=== PATIENT | male | born 1990 ===

== ENCOUNTER 2019-04-10 09:20 | Emergency (ER) | payer OTHER ==
[2019-04-10] MEDS ORDERED: NS 0.9% 1000 ML** 1,000 ML IV ONE (09:31)
--- NOTE | 2019-04-10 09:44 | ED ---
Abdominal Pain/Male - HPI Summary HPI Summary: The pt is a 29 yr old male [place] [facility] [place] with diarrhea beginning 2 months [employer]. He states that he was seen at the [facility] last week and gave stool specimens but has not heard back from them. He can ingest liquids without issue but eating solids cause him to have diarrhea and abd pain. 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 He has not traveled outside of the [place] recently. He notes that the pain is in the left mid abdomen and rates his current pain severity a 3/10. No alleviating factors noted. He also denies any vomiting. - History of Current Complaint Chief Complaint: EDAbdPain Stated Complaint: ABD PAIN Time Seen by Provider: 04/10/19 09:30 Hx Obtained From: Patient Onset/Duration: Sudden Onset, Lasting Weeks - 2 months, Still Present Timing: Intermittent, Lasting Weeks Severity Initially: Mild Severity Currently: Mild Pain Intensity: 3 Pain Scale Used: 0-10 Numeric - 3 Location: Umbilical - left Character: Cramping Aggravating Factor(s): Food Alleviating Factor(s): Nothing Associated Signs And Symptoms: Positive: Diarrhea, Other - pos - abd pain. Negative: Vomiting - Allergies/Home Medications Allergies/Adverse Reactions: Allergies Allergy/AdvReac Type Severity Reaction Status Date / Time Penicillins Allergy Unknown Verified 04/10/19 09:29 Reaction Details PMH/Surg Hx/FS Hx/Imm Hx Infectious Disease History: No Infectious Disease History: Denies: Traveled Outside the [place] in Last 30 Days Review of Systems Positive: Abdominal Pain, Diarrhea. Negative: Vomiting All Other Systems Reviewed And Are Negative: Yes Physical Exam Triage Information Reviewed: Yes Vital Signs On Initial Exam: Initial Vitals Temp Pulse Resp BP Pulse Ox 98.0 F 92 18 123/78 98 04/10/19 09:23 04/10/19 09:23 04/10/19 09:23 04/10/19 09:23 04/10/19 09:23 Vital Signs Reviewed: Yes Procedures - Sedation Patient Received Moderate/Deep Sedation with Procedure: No Diagnostics - Vital Signs Vital Signs Temp Pulse Resp BP Pulse Ox 04/10/19 09:23 98.0 F 92 18 123/78 98 - Laboratory Result Diagrams: 04/10/19 09:40 04/10/19 09:40 Lab Statement: Any lab studies that have been ordered have been reviewed, and results considered in the medical decision making process. 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 He states that he was seen at the [facility] last week and gave stool specimens but has not heard back from them. He can ingest liquids without issue but eating solids cause him to have diarrhea and abd pain. Test results normal except for Plt Count 136 and Absolute Neuts 1.4. In the ED course pt was given 1000 mls fluids. Final Dx are abd pain and diarrhea. Pt will be discharged home with PCP follow up. Pt is agreeable with this plan. - Diagnoses Provider Diagnoses: Abdominal pain, Diarrhea Discharge ED - Sign-Out/Discharge Documenting (check all that apply): Patient Departure - discharge - Discharge Plan Condition: Stable Disposition: HOME Patient Education Materials: Acute Diarrhea (ED), Acute Abdominal Pain (ED) Referrals: [facility] [Outside] - 3 Days Additional Instructions: Please follow up with your primary care physician within 3 days. Please return to the ED for any new or worsening symptoms. - Billing Disposition and Condition Condition: STABLE Disposition: Home - Attestation Statements Document Initiated by Amaliaibe: Yes Documenting Scribe: Kahlil Aragon Provider For Whom Luca is Documenting (Include Credential): Luis Kebede DO Scribe Attestation: Kahlil Jackson, scribed for Luis Kebede DO on 04/10/19 at 1331. Scribe Documentation Reviewed: Yes Provider Attestation: The documentation as recorded by the Kahlil perez accurately reflects the service I personally performed and the decisions made by me, Luis Kebede DO Status of Scribchiqui Document: Viewed
[2019-04-10 09:48] LABS: ABS Eosinophils 0.3 10^3/ul (0-0.6); ABS Lymphocytes 1.6 10^3/ul (1.0-4.8); ABS Monocytes 0.3 10^3/ul (0-0.8); ABS Neutrophils 1.4 10^3/ul (1.5-7.7); Eosinophil % 8.1 %; Hematocrit 47 % (42-52); Hemoglobin 15.2 g/dL (14.0-18.0); Lymphocyte % 44.6 %; Mean Corpuscular HGB Conc 33 g/dL (31-36); Mean Corpuscular Hemoglobin 29 pg (27-31); Mean Corpuscular Volume 88 fL (80-94); Mean Platelet Volume 9.2 fL (7.4-10.4); Nucleated Red Blood Cells % 0.2; Platelet Count 136 10^3/uL (150-450); Red Cell Distribution Width 14 % (10-15); White Blood Count 3.6 10^3/uL (3.5-10.8)
[2019-04-10 10:21] LABS: Albumin 4.9 g/dL (3.2-5.2); Albumin/Globulin Ratio 2.1 (1-3); BUN/Creatinine Ratio 14.4 (8-20); Calcium 10.1 mg/dL (8.6-10.3); EGFR African American 110.7 (>60); EGFR Non-African American 91.5 (>60); Globulin 2.3 g/dL (2-4); Potassium 3.8 mmol/L (3.5-5.0); Total Bilirubin 0.9 mg/dL (0.2-1.0); Total Protein 7.2 g/dL (6.4-8.9)
[2019-04-10 12:32] VITALS: BP 111/70
== END 2019-04-10 12:30 | disposition home or self-care (01) ==
LOC: ED 09:20
DX: R10.9 Unspecified abdominal pain (principal); R19.7 Diarrhea, unspecified; Z88.0 Allergy status to penicillin
CPT/HCPCS: 36415; 80053; 85025; 87045; 87046; 87077; 87425; 87899; 99282